=== PATIENT | female | born 1985 | race Caucasian/White ===

== ENCOUNTER 2025-05-12 06:21 | Emergency (ER) | payer SELFPAY ==
[2025-05-12 06:23] VITALS: BMI 29.2
[2025-05-12 06:34] VITALS: BP 122/89; PULSE 87; RESP 18; TEMP 37.2; O2SAT 98
--- NOTE | 2025-05-12 07:02 | PD.EDEAR ---
ED Ear RME/HPI General Chief complaint: Ear Stated complaint: LEFT EAR PAIN Time Seen by Provider: 05/12/25 06:30 Source: patient Arrival date/time: 05/12/25 06:21 Limitations: no limitations RME / HPI RME / HPI Narrative: Patient is a 39-year-old female with no significant past medical history senting emerged from with concerns for left ear pain. Denies fevers chills nausea vomiting chest pain abdominal pain sore throat recent travel sick contacts trauma. Related Data Previous Rx's ?Medication ?Instructions ?Recorded ciprofloxacin 0.3 %-dexamethasone 4 drp otic (ear) Q12H 7 days #7.5 05/12/25 0.1 % ear drops,suspension mL Allergies Allergy/AdvReac Type Severity Reaction Status Date / Time Sulfa (Sulfonamide Allergy Verified 05/12/25 06:24 Antibiotics) ED Exam General Limitations: Present no limitations General appearance: Present alert and in no apparent distress Head Head exam: Present atraumatic and normocephalic Eye Eye exam: Present normal appearance, PERRL and EOMI ENT ENT exam: Present other (Left external auditory canal, erythematous, painful manipulation of the pinna, no tenderness to palpation at the mastoid, bilateral tympanic membranes are intact, no bulging, no fluid behind the tympanic membrane) Neck Neck exam: Present normal inspection and full ROM; Absent lymphadenopathy Chest Chest inspection: Present symmetric chest wall rise Respiratory Respiratory exam: Absent respiratory distress Cardiovascular Cardiovascular exam: Present regular rate Abdominal Exam Abdominal exam: Absent distention Course Quality Measures none Orders Category Date Time Status Ciprofloxacin/Dexam Otic Lillian [Ciprodex Otic Lillian] Med 05/12/25 07:01 Discontinued 3 drop LEFT EAR X1 ONE Vital Signs Vital signs: Vital Signs Temperature 98.9 F 05/12/25 06:34 Pulse Rate 87 05/12/25 06:34 Respiratory Rate 18 05/12/25 06:34 Blood Pressure 122/89 H 05/12/25 06:34 Pulse Oximetry (%) 98 05/12/25 06:34 Oxygen Delivery Method Room Air 05/12/25 06:34 Ear Patient data External records reviewed:: [facility] previous records Clinical information provided by:: patient Social determinants that could affect healthcare access:: none Patient has the following chronic illnesses:: None How is presenting disease/condition affected by chronic disease/condition?: no chronic disease Evaluation data The following diagnostics were reviewed and interpreted by me:: other (specify) (None) Lab and/or radiology exams considered but not ordered:: None Interpretation Summary: None Medications / Prescriptions Medications or Prescriptions considered but not ordered:: None Medication administrations:: Medication Administration History Discontinued Medications Ciprofloxacin/Dexamethasone (Ciprofloxacin/Dexam Otic Lillian 7.5 Ml Btl) 3 drop LEFT EAR X1 ONE Stop: 05/12/25 07:02 See above Consultations Consultation(s) initiated? (list below): No Diagnosis Most likely diagnosis given after review of the tests above:: Otitis externa, left ear Admission Indicated Admission indicated?: not indicated Admission Request Was there a request for admission?: No Disposition Plan Disposition Plan: Discharge Discharge Attestation Discharge Attestation: The patient and all family members were given an opportunity to ask questions and understood the discharge instructions. Discharge instructions specifically effects, indications for sooner follow up or return to the emergency department, and the expected course of current diagnosis. Patient condition: Stable Medical Decision Making MDM Narrative MDM Narrative: Patient is a 39-year-old female is in the emergency primary concerns for left ear pain. Vital signs and exam as above. Exam is most consistent with otitis externa. Patient does not have any purulent discharge, less likely malignant otitis externa. No pain at the mastoid, no tympanic membrane bulging, tympanic membranes are intact. Less likely otitis media, malignant otitis externa, mastoiditis. Provided patient with Ciprodex eardrops as well as a antibiotic course for home. Advised her to follow-up with her primary care doctor, and return to the emergency department if has worsening symptoms or any symptoms of concern. I would also be beneficial for her to follow-up with an ear nose and throat Discharge Plan Plan Patient Disposition: HOME (Self Care) Prescriptions/Referrals Prescriptions/Med Rec: New ciprofloxacin-dexamethasone 0.3-0.1 % drops,suspension 4 drp otic (ear) Q12H 7 Days Qty: 7.5 0RF Problem List Clinical Impression: Otitis externa Patient/Caregiver Discharge Instructions Education Materials: ED External Ear Infection (Adult) Additional Instructions: Please follow-up with your primary care doctor within 1 to 2 days, please use your antibiotic as prescribed. It would be beneficial if he followed up with an learning and development specialist as well Print Language: Azeri Stand Alone Forms: [employer] Info., Patient Portal Info Letter
== END 2025-05-12 07:38 | disposition home or self-care (01) ==
LOC: SERX 07:34
PROVIDERS: Emergency Provider Emergency Medicine
DX: H60.92 Unspecified otitis externa, left ear (principal)
CPT/HCPCS: 99281; A9270